=== PATIENT | male | born 1990 | race Hispanic/Latino ===

== ENCOUNTER 2022-06-30 14:07 | Emergency (ER) | payer SELFPAY ==
[~2022-06-30] VITALS: Ht 172.7 cm; Wt 104.8 kg
== END 2022-06-30 16:22 | disposition home or self-care (01) ==
LOC: ER 14:15
DX: B34.9 Viral infection, unspecified (principal)
CPT/HCPCS: 83518; 87070; 87400; 99282

== ENCOUNTER 2022-11-15 19:36 | Emergency (ER) | payer SELFPAY ==
[~2022-11-15] VITALS: Ht 160 cm; Wt 100.7 kg
[~2022-11-15 19:36] MED LIST: LOTRIMIN AF12 GM TOP
[2022-11-15] MEDS ORDERED: KETOROLAC TROMETHAMINE 30 MG/ML VIAL IV STA (19:59)
[2022-11-15 20:00] LABS: BASOPHILS # (AUTO) 0.1 (0.0-0.1); EOSINOPHILS # (AUTO) 0.9 (0.0-0.4); EOSINOPHILS % 10.3 % (0.0-6.0); HEMATOCRIT 43.3 % (38.2-49.6); HEMOGLOBIN 14.8 g/dL (14.0-18.0); LYMPHOCYTES # (AUTO) 2.9 (1.0-3.2); LYMPHOCYTES % 34.6 % (18.0-39.1); MEAN CORPUSCULAR HEMOGLOBIN 30.3 pg (28-32); MEAN CORPUSCULAR HGB CONC 34.2 g/dL (31-35); MEAN CORPUSCULAR VOLUME 88.5 fL (81-99); MONOCYTES # (AUTO) 0.7 (0.2-0.8); MONOCYTES % 8.1 % (4.4-11.3); NEUTROPHILS # (AUTO) 3.8 (2.1-6.9); NEUTROPHILS % 45.5 % (38.7-80.0); PLATELET COUNT 289 x10e3/uL (140-360); RED BLOOD COUNT 4.89 x10e6/uL (4.3-5.7); RED CELL DISTRIBUTION WIDTH 12.3 % (11.7-14.4)
[2022-11-15 20:18] LABS: ALANINE AMINOTRANSFERASE 22 IU/L (0-55); ALBUMIN/GLOBULIN RATIO 1.3 (0.8-2.0); ALKALINE PHOSPHATASE 71 IU/L (40-150); ANION GAP 14.6 mmol/L (8-16); BLOOD UREA NITROGEN 18 mg/dL (7-26); BUN/CREATININE RATIO 23 (6-25); CALCIUM 9.2 mg/dL (8.4-10.2); CARBON DIOXIDE 25 mmol/L (22-29); CHLORIDE 104 mmol/L (98-107); CREATINE KINASE 107 IU/L (30-200); CREATININE, SERUM 0.77 mg/dL (0.72-1.25); GLUCOSE 115 mg/dL (74-118); POTASSIUM 3.6 mmol/L (3.5-5.1); SODIUM 140 mmol/L (136-145)
[2022-11-15] MEDS ORDERED: IOPAMIDOL 370 MG/ML 100 ML INFUS..BTL INJ ONE (20:36)
[2022-11-15] MEDS ORDERED: AZITHROMYCIN250 MG PO (21:37)
[2022-11-15 22:04] VITALS: BP 124/89
== END 2022-11-15 21:48 | disposition home or self-care (01) ==
LOC: ER 19:49
DX: R07.9 Chest pain, unspecified (principal); F14.10 Cocaine abuse, uncomplicated
CPT/HCPCS: 36415; 71260; 80053; 82550; 82553; 83690; 83880; 84484; 85025; 85379; 93005; 99284; J1885; Q9967

== ENCOUNTER 2024-09-26 23:17 | Emergency (ER) | payer OTHER ==
[~2024-09-26] VITALS: Ht 172.7 cm; Wt 98.9 kg
[~2024-09-26 23:17] MED LIST changes: +AZITHROMYCIN250 MG PO
[2024-09-26 23:39] VITALS: PULSE 80; RESP 18; TEMP 98.6
[2024-09-27 00:08] LABS: BASOPHILS # (AUTO) 0.1 (0.0-0.1); BASOPHILS % 0.6 % (0.0-1.0); EOSINOPHILS # (AUTO) 0.5 (0.0-0.4); EOSINOPHILS % 3.4 % (0.0-6.0); LYMPHOCYTES # (AUTO) 1.8 (1.0-3.2); LYMPHOCYTES % 12.6 % (18.0-39.1); MEAN CORPUSCULAR HEMOGLOBIN 31.2 pg (28-32); MEAN CORPUSCULAR HGB CONC 35.6 g/dL (31-35); MEAN CORPUSCULAR VOLUME 87.7 fL (81-99); MONOCYTES # (AUTO) 0.7 (0.2-0.8); NEUTROPHILS # (AUTO) 11.2 (2.1-6.9); NEUTROPHILS % 77.6 % (38.7-80.0); PLATELET COUNT 330 x10e3/uL (140-360); RED BLOOD COUNT 5.13 x10e6/uL (4.3-5.7); RED CELL DISTRIBUTION WIDTH 12.4 % (11.7-14.4)
[2024-09-27 00:16] LABS: AMPHETAMINES SCREEN,URINE NEGATIVE (NEGATIVE); BENZODIAZEPINES SCREEN,URINE NEGATIVE (NEGATIVE); CANNABINOIDS SCREEN,URINE POSITIVE (NEGATIVE); COCAINE SCREEN,URINE POSITIVE (NEGATIVE); METHADONE SCREEN, URINE NEGATIVE (NEGATIVE); OPIATES SCREEN,URINE NEGATIVE (NEGATIVE); PHENCYCLIDINE SCREEN,URINE NEGATIVE (NEGATIVE)
[2024-09-27] MEDS ORDERED: IOPAMIDOL 370 MG/ML 100 ML INFUS..BTL INJ ONE (00:19)
[2024-09-27 00:35] LABS: ALBUMIN 3.5 g/dL (3.5-5.0); ALBUMIN/GLOBULIN RATIO 1.5 (0.8-2.0); ANION GAP 13.4 mmol/L (8-16); BILIRUBIN,TOTAL 0.5 mg/dL (0.2-1.2); CALCIUM 8.5 mg/dL (8.4-10.2); CREATININE, SERUM 0.84 mg/dL (0.72-1.25); TOTAL PROTEIN 5.8 g/dL (6.5-8.1)
[2024-09-27 00:36] LABS: POTASSIUM 3.4 mmol/L (3.5-5.1)
[2024-09-27 01:24] VITALS: BP 111/81; PULSE 77; RESP 17; TEMP 98.6; O2SAT 97
[2024-09-27] MEDS: ACETAMINOPHEN 325 MG TAB PO STA (01:29)
== END 2024-09-27 01:34 | disposition home or self-care (01) ==
LOC: ER 23:20
DX: R55 Syncope and collapse (principal); S00.31XA Abrasion of nose, initial encounter; F14.10 Cocaine abuse, uncomplicated; W18.30XA Fall on same level, unspecified, initial encounter; Y92.89 Other specified places as the place of occurrence of the external cause; F17.210 Nicotine dependence, cigarettes, uncomplicated
CPT/HCPCS: 36415; 70450; 70486; 71260; 80053; 80307; 85025; 93005; 99284; Q9967

== ENCOUNTER 2024-12-28 19:52 | Emergency (ER) | payer OTHER ==
[~2024-12-28] VITALS: Ht 172.7 cm; Wt 98.9 kg
[2024-12-28 20:33] VITALS: PULSE 90; RESP 17; TEMP 97; O2SAT 98
[2024-12-28] MEDS ORDERED: ANUSOL-HC25 MG RC (21:22)
== END 2024-12-28 21:34 | disposition home or self-care (01) ==
LOC: ER 21:16
DX: K62.89 Other specified diseases of anus and rectum (principal); K64.4 Residual hemorrhoidal skin tags
CPT/HCPCS: 99282

== ENCOUNTER 2024-12-29 11:20 | Emergency (ER) | payer OTHER ==
[~2024-12-29] VITALS: Ht 172.7 cm; Wt 98.9 kg
[~2024-12-29 11:20] MED LIST changes: +ANUSOL-HC25 MG RC
[2024-12-29 11:46] VITALS: PULSE 77; RESP 16; TEMP 97.3; O2SAT 97
== END 2024-12-29 12:53 | disposition home or self-care (01) ==
LOC: ER 11:44
DX: K64.9 Unspecified hemorrhoids (principal)
CPT/HCPCS: 99283

== ENCOUNTER 2025-03-24 17:02 | Emergency (ER) | payer OTHER ==
[~2025-03-24] VITALS: Ht 172.7 cm; Wt 98.9 kg
[2025-03-24 17:30] VITALS: PULSE 102; RESP 18; TEMP 99.2
[2025-03-24 18:12] LABS: CORONAVIRUS COVID-19 AG POSITIVE (NEGATIVE)
[2025-03-24] MEDS: ACETAMINOPHEN 325 MG TAB PO ONE (20:31)
[2025-03-24 20:48] VITALS: BP 119/85; PULSE 110; RESP 20; O2SAT 97
== END 2025-03-24 20:55 | disposition home or self-care (01) ==
LOC: ER 20:05
DX: R05.9 Cough, unspecified (principal); U07.1 COVID-19; R09.89 Other specified symptoms and signs involving the circulatory and respiratory systems; E78.5 Hyperlipidemia, unspecified
CPT/HCPCS: 99283